=== PATIENT | female | born 1985 | race Two or more races ===

== ENCOUNTER 2024-10-08 02:53 | Observation (INO) | payer OTHER ==
[2024-10-08] MEDS: ACETAMINOPHEN 1000 MG/100 ML BAG IVPB ONE ×2 (04:36→15:37)
[2024-10-08] MEDS: LACTATED RINGERS SOLUTION 1000 ML INFUS.BAG IV ONE (04:36)
[2024-10-08 04:38] LABS: ABSOLUTE IMMATURE GRANULOCYTES 0.12 x10^3/uL (0.0-0.031); BASOPHILS # 0.08 x10^3/uL (0.01-0.08); EOSINOPHIL % 0.3 % (0.7-5.8); EOSINOPHILS # 0.05 x10^3/uL (0.04-0.36); MCHC 34.4 g/dl (32.2-35.5); MEAN CELL VOLUME 84.8 fl (79.4-94.8); MEAN PLT VOLUME 9.8 fl (9.4-12.3); MONOCYTE # 0.94 x10^3/uL (0.24-0.86); MONOCYTE % 4.9 % (4.7-12.5); RDW 13.3 % (12.1-16.8)
[2024-10-08 05:03] LABS: CO2 22.0 mmol/L (21-32); GLUCOSE,RANDOM 131.0 mg/dL (74-106)
[2024-10-08 05:06] LABS: CREATININE 0.5 mg/dL (0.55-1.3); SGOT/AST 55.0 U/L (15-37); SGPT/ALT 99.0 U/L (13-61)
[2024-10-08 05:07] LABS: TOT PROT 7.6 g/dl (6.4-8.2)
[2024-10-08 05:09] LABS: ALK PHOS 82.0 U/L (45-117); INR 0.99 (0.83-1.09); PROTHROMBIN TIME (PATIENT) 10.9 SEC (9.7-13.0)
[2024-10-08 05:12] LABS: ACTIVATED PTT 27.6 SECONDS (25.2-36.5)
[2024-10-08] MEDS: morphine CARPU-JECT 2 MG/1 ML DISP.SYRIN IVPUSH ONE ×2 (06:09→09:57)
[2024-10-08] MEDS ORDERED: MORPHINE SULFATE 2 MG/ML SYRINGE ONE ×2 (06:11→09:54)
[2024-10-08] MEDS: PIPERACILLIN/TAZOB 4.5 GM 4.5 GM in DEXTROSE 5%-WATER 100 ML IVPB ONE (06:21)
[2024-10-08] MEDS ORDERED: PIPERACILLIN/TAZOB 4.5 GM 4.5 GM/100 ML BAG IVPB ONE (06:24)
[2024-10-08 08:31] LABS: URINE APPEARANCE CLEAR; URINE BILIRUBIN NEGATIVE (NEGATIVE); URINE COLOR YELLOW; URINE GLUCOSE (UA) NEGATIVE (NEGATIVE); URINE KETONE 2+ (NEGATIVE); URINE LEUK ESTERASE NEGATIVE (NEGATIVE); URINE NITRITE NEGATIVE (NEGATIVE); URINE PROTEIN NEGATIVE (NEGATIVE); URINE UROBILINOGEN 1.0 mg/dL (0.2-1.0)
[2024-10-08] MEDS: LACTATED RINGERS SOLUTION 1,000 ML/1,000 ML INFUS.BAG IV SCH (10:19)
[2024-10-08] MEDS ORDERED: DEXTROSE 5%-LACTATED RINGERS 1,000 ML IV SCH (12:45)
[2024-10-08] MEDS ORDERED: BUPIVACAINE HCL/PF 0.25% (2.5MG/ML) 10 ML VIAL ONE (13:05)
[2024-10-08] MEDS ORDERED: LIDOCAINE HCL/PF 2% SDV 5ML VIAL ONE (13:52)
[2024-10-08] MEDS ORDERED: ROCURONIUM BROMIDE 50 MG/5 ML SYRINGE ONE (13:53)
[2024-10-08] MEDS ORDERED: PROPOFOL 20 ML ONE (13:53)
[2024-10-08] MEDS ORDERED: SUCCINYLCHOLINE CHLORIDE 200 MG/10 ML SYRINGE ONE (13:53)
[2024-10-08] MEDS ORDERED: cefOXitin SODIUM 2 GM VIAL (RESTRICTED TO ID) IVPB ONE (14:12)
[2024-10-08] MEDS: BUPIVACAINE HCL/PF 2.5 MG/ML - 30 ML VIAL IJ ONE ×2 (14:23)
[2024-10-08] MEDS ORDERED: SUGAMMADEX SODIUM 200 MG/2 ML VIAL ONE (15:01)
[2024-10-08] MEDS ORDERED: ONDANSETRON 4 MG/2 ML VIAL IVPUSH PRN ×2 (15:05→15:59)
[2024-10-08] MEDS ORDERED: PROMETHAZINE HCL 25 MG/1 ML VIAL IVPB PRN ×2 (15:05→15:59)
[2024-10-08] MEDS ORDERED: ACETAMINOPHEN INJECTION 100 ML ONE (15:34)
[2024-10-08] MEDS: LACTATED RINGERS SOLUTION 1,000 ML IV SCH ×2 (15:39→16:45)
[2024-10-08] MEDS ORDERED: ACETAMINOPHEN 325 MG TABLET (FP) PO PRN (18:38)
[2024-10-08 20:17] VITALS: BMI 29.5
[2024-10-09 08:34] LABS: ABSOLUTE IMMATURE GRANULOCYTES 0.15 x10^3/uL (0.0-0.031); BASOPHILS # 0.04 x10^3/uL (0.01-0.08); EOSINOPHIL % 0.2 % (0.7-5.8); EOSINOPHILS # 0.04 x10^3/uL (0.04-0.36); MCHC 33.3 g/dl (32.2-35.5); MEAN CELL VOLUME 87.8 fl (79.4-94.8); MEAN PLT VOLUME 10.5 fl (9.4-12.3); MONOCYTE # 0.87 x10^3/uL (0.24-0.86); MONOCYTE % 5.0 % (4.7-12.5); RDW 13.8 % (12.1-16.8)
[2024-10-09 09:15] LABS: GLUCOSE,RANDOM 115.0 mg/dL (74-106)
[2024-10-09 09:16] LABS: CO2 20.0 mmol/L (21-32)
[2024-10-09 09:19] LABS: SGPT/ALT 82.0 U/L (13-61)
[2024-10-09 09:20] LABS: SGOT/AST 47.0 U/L (15-37)
[2024-10-09 09:21] LABS: CREATININE 0.5 mg/dL (0.55-1.3)
[2024-10-09 09:23] LABS: TOT PROT 6.1 g/dl (6.4-8.2)
[2024-10-09 09:24] LABS: ALK PHOS 72.0 U/L (45-117)
[2024-10-09 09:51] VITALS: RESP 20
[2024-10-09] MEDS: POTASSIUM CHLORIDE ORAL LIQUID 20 MEQ/15 ML PO ONE (09:56)
[2024-10-09] MEDS ORDERED: PRENATAL VITAMINS W/ FOLIC ACID TABLET (FP) PO SCH (10:15)
[2024-10-09 13:26] VITALS: BP 114/79; PULSE 89; TEMP 97.7
[2024-10-10] MEDS ORDERED: ENOXAPARIN NA (PORCINE) 40 MG/0.4 ML DISP.SYRIN SQ SCH ×2 (10:00)
== END 2024-10-09 13:45 | disposition home or self-care (01) ==
LOC: JER 02:53 → JERBED 12:04 → UNDOADMOB 12:04 → INTOOBSV 12:41 → OBSVTOIN 12:41 → J8W 17:45 → JERBED 17:45 → J8W 10-09 10:15 → JERBED 10-09 10:15
PROVIDERS: ADMIT Student in an Organized Health Care Education/Training Program; ATTEND Nurse Practitioner Family
PROC: 0DTJ4ZZ Resection of Appendix, Percutaneous Endoscopic Approach (ICD-10-PCS; principal; 2024-10-09)
PROC: 3E033NZ Introduction of Analgesics, Hypnotics, Sedatives into Peripheral Vein, Percutaneous Approach (ICD-10-PCS; 2024-10-09)
PROC: 3E0337Z Introduction of Electrolytic and Water Balance Substance into Peripheral Vein, Percutaneous Approach (ICD-10-PCS; 2024-10-09)
PROC: 3E03329 Introduction of Other Anti-infective into Peripheral Vein, Percutaneous Approach (ICD-10-PCS; 2024-10-09)
DX: K37 Unspecified appendicitis (principal); O02.1 Missed abortion; Z90.49 Acquired absence of other specified parts of digestive tract
CPT/HCPCS: 36415; 72195-TC; 74181-TC; 76817-TC; 76830-TC; 80053; 81003; 83735; 84100; 84702; 85025; 85610; 85730; 86140; 86850; 86900; 86901; 87086; 88304-TC; 94760; 99285-25; G0378